=== PATIENT | female | born 1970 | race American Indian/Alaskan Native ===

== ENCOUNTER 2019-12-01 07:20 | Emergency (ER) | payer OTHER ==
--- NOTE | 2019-12-01 08:12 | Emergency Department Report ---
Minor Respiratory - HPI Chief Complaint: Upper Respiratory Infection Stated Complaint: COUGH Time Seen by Provider: 12/01/19 07:53 Duration: 1 month Severity: mild Minor Respiratory: Yes Able to Tolerate Fluids, Yes Cough, No Rhinorrhea, No Sore Throat, No Ear Pain, No Sick Contacts, No Hemoptysis, No Chest Pain, No Shortness of Breath, No Fever Other History: This is a 49-year-old -[place] female who presents to the emergency room with a cough for 4 weeks. Patient states she was diagnosed with a sinus infection when she was out of town with symptoms started. She was placed on antibiotics with minimal improvement. Patient states she was seen again in an urgent care and diagnosed with bronchitis and given an inhaler. She went to her PCP Dr. Gale Ching on Tuesday and had a normal chest x-ray. She was started on steroids, cough syrup, and antibiotics. Patient also reports two negative COVID 19 test. Patient states nothing is working. She denies fever, chills, shortness of breath, chest pain, sore throat, coryza, weakness, nausea, vomiting, or diarrhea. ED Review of Systems ROS: Stated complaint: COUGH Other details as noted in HPI Constitutional: denies: chills, fever ENT: denies: ear pain, throat pain, congestion Respiratory: cough. denies: shortness of breath, wheezing Cardiovascular: denies: chest pain, palpitations Gastrointestinal: denies: abdominal pain, nausea, diarrhea Musculoskeletal: denies: back pain, joint swelling, arthralgia Skin: denies: rash, lesions Neurological: denies: headache, weakness, paresthesias Psychiatric: denies: anxiety, depression ED Past Medical Hx - Past Medical History Hx Hypertension: Yes - Social History Smoking Status: Never Smoker Substance Use Type: None Minor Respiratory Exam - Exam General: Vital signs noted. No distress. Alert and acting appropriately. HEENT: Yes Pharyngeal Erythema, Yes Moist Mucous Membranes, Yes Rhinorrhea (Turbinates are mildly congested), No Pharyngeal Exudates, No Conjuctival Injection, No Frontal Tenderness, No Maxillary Tenderness Ear: Neither TM Bulge, Neither TM Erythema, Neither EAC Pain, Neither EAC Discharge Neck: Yes Supple, No Adenopathy Lungs: Yes Good Air Exchange, No Wheezes, No Ronchi, No Stridor, No Cough, No Labored Respirations, No Retractions, No Use of Accessory Muscles, No Other Abnormal Lung Sounds Heart: Yes Regular, No Murmur Abdomen: Yes Normal Bowel Sounds, No Tenderness, No Peritoneal Signs Skin: No Rash, No Edema Neurologic: Alert and oriented, no deficits. Musculoskeletal: Unremarkable. ED Course Vital Signs 12/01/19 07:22 Pulse Rate 110 H Respiratory 16 Rate Blood Pressure 145/100 O2 Sat by Pulse 99 Oximetry Vital Signs 12/01/19 12/01/19 07:22 08:27 Temperature 98.9 F Pulse Rate 110 H 94 H Respiratory 16 18 Rate Blood Pressure 145/100 Blood Pressure 142/100 [Left] O2 Sat by Pulse 99 98 Oximetry ED Medical Decision Making - Medical Decision Making This is a 49-year-old female that presents with a cough for 4 weeks. No distress noted. Past medical history of hypertension. Admits to not taking blood pressure medication this morning will take when she leaves. Patient is otherwise healthy patient with post viral cough. She denies chills, myalgia, shortness of breath, chest pain, weakness, headache, sore throat, dizziness, coryza, or fever. 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 There is low suspicion of influenza, pneumonia, strep throat, or sinusitis. Labs and imaging are deferred at this time. There are no indications for antibiotics at this time. Patient has cough suppressant, antibiotics, and inhaler at bedside prescribed by PCP. Instructed to continue medication. Increase fluid intake and wash hands frequently. Discharged home stable with strict return instructions. Follow up with Primary Care Provider Dr Gale Styles in 2 to 3 days. Critical care attestation.: If time is entered above; I have spent that time in minutes in the direct care of this critically ill patient, excluding procedure time. ED Disposition Clinical Impression: Post-viral cough syndrome Disposition: - TO HOME OR SELFCARE Is pt being admited?: No Condition: Stable Instructions: Acute Cough (ED) Additional Instructions: Increase fluid intake and rest. Wash hands frequently. Follow up with Primary Care Provider. Return to ER if fever, SOB, or difficulty breathing after 48 hours of supportive care. Referrals: GALE CHING [Primary Care Provider] - 3-5 Days Time of Disposition: 08:57
[2019-12-01 08:29] VITALS: BP 142/100
== END 2019-12-01 09:05 | disposition home or self-care (01) ==
LOC: ED 07:20
DX: B34.9 Viral infection, unspecified (principal); I10 Essential (primary) hypertension
CPT/HCPCS: 99281

== ENCOUNTER 2019-12-08 13:21 | Emergency (ER) | payer OTHER ==
[2019-12-08 13:36] VITALS: BP 169/117
--- NOTE | 2019-12-08 14:39 | Emergency Department Report ---
Chief Complaint: Sore Throat Stated Complaint: THROAT PAIN Time Seen by Provider: 12/08/19 14:27 - HPI History of Present Illness: 49-year-old -[place] female presents to the emergency room for sore throat pain for 2 days. Patient states that she has been having a cough for about 5 weeks has been seen by her primary care provider to ER as well as in urgent care. Patient reports that she coughs so much that she vomits. Patient denies any shortness of breath chest pain or difficulty swallowing or leg edema. Patient reports that she does have a history of hypertension and did not take her medications this morning. Patient does admit to having postnasal drip where she feels a tickling back in her throat and that sets her off with her cough. Patient denies any fever no chills no nausea no vomiting no headaches. - Exam Vital Signs: Vital Signs 12/08/19 13:30 Temperature 97.9 F Pulse Rate 104 H Respiratory 20 Rate Blood Pressure 169/117 O2 Sat by Pulse 98 Oximetry Physical Exam: Gen: alert oriented NAD HEENT. Oral mucosa is moist patent no erythematous tonsils are not hypertrophic Cardic: regular rate and rhythm no murmurs appreciated Resp: Clear to auscultation bilateral no wheezing no rales or rhonchi. MSE screening note: Focused history and physical exam performed. Due to findings the following was ordered: 49-year-old -[place] female presents to the emergency room for sore throat pain for 2 days. Patient states that she has been having a cough for about 5 weeks has been seen by her primary care provider to ER as well as in urgent care. Patient reports that she coughs so much that she vomits. Patient denies any shortness of breath chest pain or difficulty swallowing or leg edema. Patient reports that she does have a history of hypertension and did not take her medications this morning. Patient does admit to having postnasal drip where she feels a tickling back in her throat and that sets her off with her cough. Patient denies any fever no chills no nausea no vomiting no headaches. Recommend patient to take [id number] cetirizine/Zyrtec's. Also recommend patient to take Benadryl right before bed as that seems to be the worse when she has the cough. Patient reports she has an appointment with her primary care provider Dr. Gale Ching on Tuesday. ED Disposition for MSE Disposition: MED SCREENING EXAM-LEFT Is pt being admited?: No Does the pt Need Aspirin: No Condition: Stable Instructions: Allergic Rhinitis (ED) Additional Instructions: Recommend taking Zyrtec/cetirizine daily and Benadryl 25 mg at night before bed. I recommend you to keep your appointment with Dr. Ching on Tuesday. Referrals: PRIMARY CARE, [Primary Care Provider] - 3-5 Days GALE CHING DO [Referring] - 3-5 Days
== END 2019-12-08 14:36 | disposition left against medical advice (07) ==
LOC: ED 13:21
DX: R07.0 Pain in throat (principal); R05 Cough; R11.10 Vomiting, unspecified; I10 Essential (primary) hypertension; Z90.49 Acquired absence of other specified parts of digestive tract; Z98.890 Other specified postprocedural states
CPT/HCPCS: 99282